=== PATIENT | female | born 2000 | race Caucasian/White ===

== ENCOUNTER 2018-11-03 13:33 | Emergency (ER) | payer OTHER, SELFPAY ==
[2018-11-03 13:34] VITALS: BP 147/104; PULSE 94; RESP 16; TEMP 36.5; O2SAT 100; BMI 29.5
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
[2018-11-03] MEDS: Naproxen 500 MG Tablet PO (14:41)
== END 2018-11-03 14:46 | disposition home or self-care (01) ==
LOC: ED 14:20
PROVIDERS: Emergency Provider Emergency Medicine
DX: R51 Headache (principal); M79.18 Myalgia, other site; S80.11XA Contusion of right lower leg, initial encounter; V49.9XXA Car occupant (driver) (passenger) injured in unspecified traffic accident, initial encounter; Y93.I9 Activity, other involving external motion; Y92.410 Unspecified street and highway as the place of occurrence of the external cause; Y99.8 Other external cause status
CPT/HCPCS: 99283